=== PATIENT | female | born 1985 | race Caucasian/White ===

== ENCOUNTER 2019-01-09 11:02 | Day surgery (SDC) | payer BC, OTHER ==
[2019-01-09] MEDS ORDERED: PROPOFOL 200 MG/20 ML BOTTLE IV ONE (11:03)
[2019-01-09] MEDS ORDERED: DEXAMETHASONE SOD PHOSPHATE 4 MG INJ IV ONE (11:03)
[2019-01-09] MEDS ORDERED: ONDANSETRON 4 MG/2 ML VIAL IV ONE (11:03)
[2019-01-09] MEDS ORDERED: CEFAZOLIN 1 G VIAL IM ONE (11:03)
[2019-01-09] MEDS ORDERED: SEVOFLURANE 250 ML BOTTLE IH ONE (11:03)
[2019-01-09 12:09] LABS: *URINE HCG, QUAL NEGATIVE (NEGATIVE)
[2019-01-09] MEDS ORDERED: MIDAZOLAM HCL 2 MG/2 ML VIAL ONE (12:42)
[2019-01-09] MEDS ORDERED: FENTANYL CITRATE 100 MCG/2 ML AMPUL ONE (14:40)
[2019-01-09] MEDS ORDERED: OXYCODONE/APAP 5-325 MG TABLET ONE (15:37)
== END 2019-01-09 16:07 | disposition home or self-care (01) ==
LOC: DS 11:02
PROVIDERS: ATTEND Obstetrics & Gynecology
DX: N87.9 Dysplasia of cervix uteri, unspecified (principal); F15.90 Other stimulant use, unspecified, uncomplicated; F41.9 Anxiety disorder, unspecified; Z72.89 Other problems related to lifestyle
CPT/HCPCS: 36415; 57522; 84703; 86900; 86901; J2250; J3010; J7120; A4663; J0690; J1100; J2405; J3490

== ENCOUNTER 2019-04-09 11:05 | Outpatient (CLI) | payer BC, OTHER ==
[2019-04-09 12:01] LABS: *BILIRUBIN,URIN NEGATIVE (NEGATIVE); *BLOOD, URINE 2+ (NEGATIVE); *CLARITY,URINE CLEAR (CLEAR); *COLOR,URINE YELLOW (YELLOW); *KETONES,URINE NEGATIVE (NEGATIVE); *UROBILINOGEN,URINE 0.2 E.U./dl (NORMAL); LEUKOCYTE ESTERASE ,URINE NEGATIVE (NEGATIVE); NITRITE, URINE NEGATIVE (NEGATIVE); PH,URINE 6.5 (5.0-8.0); UGLUCOSE NEGATIVE (NEGATIVE)
[2019-04-09 12:08] LABS: BACTERIA,URINE FEW /HPF (NONE SEEN); SQUAMOUS EPITHELIAL CELL,UR FEW /HPF (NONE SEEN); WBC,URINE 0-3 /HPF (0-3)
== END 2019-04-09 23:59 | disposition home or self-care (01) ==
LOC: LAB 11:05
DX: N20.0 Calculus of kidney (principal)
CPT/HCPCS: 76770; 87086